=== PATIENT | female | born 2000 | race Caucasian/White ===

== ENCOUNTER 2019-06-06 09:57 | Inpatient (IN) | payer OTHER ==
[2019-06-06 11:30] LABS: Bacteria,Urine 1+ /HPF (Negative); Bilirubin,Urine NEG (Negative); Blood,Urine LG (Negative); Color,Urine Yellow (Yellow); Mucus,Urine FEW /HPF; Urobilinogen,Urine < 2.0 mg/dL (<2.0)
[2019-06-06 11:40] LABS: Amphetamine Screen,Urine PRESUMPTIVE NEGATIVE; Benzodiazepines Screen,Urine PRESUMPTIVE NEGATIVE; Cannabinoid Screen,Urine PRESUMPTIVE NEGATIVE; Cocaine Screen,Urine PRESUMPTIVE NEGATIVE; Methadone Screen,Urine PRESUMPTIVE NEGATIVE; Opiate Screen,Urine PRESUMPTIVE NEGATIVE
[2019-06-06] MEDS ORDERED: LACTATED RINGERS 1,000 ML ONE (13:27)
[2019-06-06] MEDS ORDERED: SUBLIMAZE IV PRN (14:10)
[2019-06-06] MEDS ORDERED: AMPICILLIN/NS 2 GM/100 ML 2 GM/100 ML BAG IV ONE (14:10)
[2019-06-06] MEDS ORDERED: XYLOCAINE 2% INFILTRATI ONE (14:10)
[2019-06-06] MEDS ORDERED: PHENERGAN PO PRN ×2 (14:10→17:41)
[2019-06-06] MEDS ORDERED: STADOL IV PRN (14:10)
[2019-06-06] MEDS ORDERED: BRETHINE IVP PRN (14:10)
[2019-06-06] MEDS ORDERED: MINERAL OIL PO PRN (14:10)
[2019-06-06] MEDS ORDERED: ZOFRAN IV PRN ×2 (14:10→17:41)
[2019-06-06] MEDS ORDERED: BRETHINE SUB-Q PRN (14:10)
--- NOTE | 2019-06-06 14:20 | History and Physical Report ---
History of Present Illness Date of examination: 06/06/19 Date of admission: 06/06/19 13:55 Chief complaint: Labor History of present illness: Pt is a 18yo HF EDC 06/06/19; EGA 40 0/7 weeks presents to L&D complaining of RUC's q 3-4 mins. She received care at [facility] since 1st Trimester, and course has been unremarkable. records are available and GBS is Negative. Past History Past Medical History: no pertinent history Past Surgical History: no surgical history Social history: no significant social history, single - Obstetrical History Expected Date of Delivery: 06/06/19 Actual Gestation: 40 Week(s) 0 Day(s) : 1 Medications and Allergies Allergies Allergy/AdvReac Type Severity Reaction Status Date / Time No Known Allergies Allergy Verified 06/06/19 10:38 Active Meds: Active Medications Butorphanol Tartrate (Stadol) 2 mg IV Q2H PRN PRN Reason: Pain , Severe (7-10) Ephedrine Sulfate (Ephedrine Sulfate) 10 mg IV Q2M PRN PRN Reason: Hypotension Fentanyl (Sublimaze) 100 mcg IV Q2H PRN PRN Reason: Labor Pain Oxytocin/Sodium Chloride (Pitocin/Ns 20 Unit/1000ml Drip) 20 units in 1,000 mls @ 125 mls/hr IV DIRECT DEON Oxytocin/Sodium Chloride (Pitocin/Ns 30 Unit/500ml) 30 units in 500 mls @ 1 mls/hr IV TITR DEON; Protocol Oxytocin/Sodium Chloride (Pitocin/Ns 30 Unit/500ml) 30 units in 500 mls @ 4 mls/hr IV TITR DEON; Protocol Lactated Ringer's (Lactated Ringers) 1,000 mls @ 125 mls/hr IV DIRECT DEON Ampicillin Sodium (Ampicillin/Ns 1 Gm/50 Ml) 1 gm in 50 mls @ 100 mls/hr IV Q4HR DEON; Protocol Ampicillin Sodium (Ampicillin/Ns 2 Gm/100 Ml) 2 gm in 100 mls @ 100 mls/hr IV ONCE ONE; Protocol Stop: 06/06/19 15:09 Lidocaine (Xylocaine 2%) 20 ml INFILTRATI ONCE ONE Stop: 06/06/19 14:11 Mineral Oil (Mineral Oil) 30 ml PO QHS PRN PRN Reason: Constipation Ondansetron HCl (Zofran) 4 mg IV Q8H PRN PRN Reason: Nausea And Vomiting Promethazine HCl (Phenergan) 25 mg PO Q6H PRN PRN Reason: Nausea And Vomiting Terbutaline Sulfate (Brethine) 0.25 mg SUB-Q ONCE PRN PRN Reason: Hyperstimulation/Hypertonicity Terbutaline Sulfate (Brethine) 0.25 mg IVP ONCE PRN PRN Reason: Hyperstimulation/Hypertonicity Review of Systems All systems: negative - Vital Signs Vital signs: Vital Signs Temp Pulse Resp BP 98.0 F 85 20 138/89 06/06/19 10:27 06/06/19 10:27 06/06/19 10:27 06/06/19 10:27 Temp Pulse Resp BP Pulse Ox 97.8 F 86 22 137/91 06/06/19 13:33 06/06/19 13:33 06/06/19 13:33 06/06/19 13:33 - Physical Exam Breasts: Positive: deferred Cardiovascular: Regular rate Lungs: Positive: Clear to auscultation Abdomen: Positive: normal appearance Genitourinary (Female): Positive: normal external genitalia Vagina: Positive: normal moisture Uterus: Positive: enlarged Extremities: Positive: normal - Obstetrical FHR: category 1 Uterine Contraction Monitor Mode: External Cervical Dilatation: 5 (per nurse) Cervical Effacement Percentage: 60 (per nurse) station: -2 Uterine Contraction Pattern: Regular Uterine Tone Measurement Phase: Contraction Uterine Contraction Intensity: Strong/Firm Results Result Diagrams: 06/06/19 14:51 Abnormal lab results 06/06/19 Range/Units 11:00 Urine WBC (Auto) 60.0 H (0.0-6.0) /HPF U Epithel Cells (Auto) 36.0 H (0-13.0) /HPF All other labs normal. Assessment and Plan - Patient Problems (1) 40 weeks gestation of Onset Date: 06/06/19 Current Visit: Yes Status: Acute Plan to address problem: A: IUP @ 40 0/7 weeks in labor GBS Negative P: Admit to L&D for expectant vaginal delivery
[2019-06-06] MEDS ORDERED: LACTATED RINGERS 1,000 ML IV SCH (15:00)
[2019-06-06] MEDS ORDERED: PITOCin/NS 30 UNIT/500ML 30 UNITS/500 ML BAG IV SCH ×2 (15:00)
[2019-06-06 15:11] LABS: Basophils % (Auto) 0.1 % (0.0-1.8); Eosinophils % (Auto) 0.1 % (0.0-4.3); Hematocrit 40.9 % (30.3-42.9); Lymphocytes # (Auto) 1.4 K/mm3 (1.2-5.4); Lymphocytes % (Auto) 9.2 % (13.4-35.0); Mean Corpuscular HGB Conc 34 % (30-34); Mean Corpuscular Volume 94 fl (79-97); Monocytes # (Auto) 0.8 K/mm3 (0.0-0.8); Platelet Count 208 K/mm3 (140-440); Red Blood Count 4.35 M/mm3 (3.65-5.03); Red Cell Distribution Width 13.8 % (13.2-15.2)
[2019-06-06] MEDS: PITOCin/NS 20 UNIT/1000ML DRIP 20 UNITS/1,000 ML BAG IV SCH ×2 (15:32→16:28)
[2019-06-06] MEDS ORDERED: METHERGINE IM ONE ×2 (15:34)
[2019-06-06] MEDS ORDERED: TYLENOL PO PRN (17:41)
[2019-06-06] MEDS ORDERED: PHENERGAN PR PRN (17:41)
[2019-06-06] MEDS ORDERED: DERMOPLAST TP PRN (17:41)
[2019-06-06] MEDS ORDERED: MILK OF MAGNESIA PO PRN (17:41)
[2019-06-06] MEDS ORDERED: LANSINOH TP PRN (17:41)
[2019-06-06] MEDS ORDERED: TUCKS PAD TP PRN (17:41)
[2019-06-06] MEDS ORDERED: NORCO 5/325 PO PRN (17:41)
[2019-06-06] MEDS ORDERED: BENADRYL PO PRN (17:41)
[2019-06-06] MEDS ORDERED: DULCOLAX PR PRN (17:41)
--- NOTE | 2019-06-06 17:50 | Procedure Note ---
OB Delivery Note - Delivery Date of Delivery: 06/06/19 Surgeon: RIVER INIGUEZ Estimated blood loss: 300cc - Vaginal Delivery presentation: vertex Delivery position: OA Intrapartum events: none Delivery induction: none Delivery augmentation: rupture of membranes Delivery monitor: external FHT, external uterine Route of delivery: Delivery placenta: spontaneous Delivery cord: 3 umbilical vessels Episiotomy: none Delivery laceration: 2nd degree, vaginal side wall Delivery repair: vicryl Anesthesia: none Delivery comments: Infant delivered OA and placed on Mom's chest for [id number] bonding and delayed cord clamping, cut by Dad - A at 1 minute: 8 at 5 minutes: 9 Gender: Female ([id number])
[2019-06-06] MEDS ORDERED: SODIUM CHLORIDE FLUSH SYRINGE 10 ML IV SCH (18:00)
[2019-06-06] MEDS ORDERED: PITOCin/NS 20 UNIT/1000ML DRIP 20 UNITS/1,000 ML BAG IV SCH (18:00)
[2019-06-06] MEDS ORDERED: AMPICILLIN/NS 1 GM/50 ML 1 GM/50 ML BAG IV SCH (18:13)
[2019-06-06] MEDS: IBUPROFEN PO SCH (21:43)
[2019-06-06] MEDS: FEOSOL PO SCH (21:43)
[2019-06-06] MEDS: COLACE PO SCH (21:45)
[2019-06-07] MEDS: IBUPROFEN PO SCH ×5 (05:30→21:54)
[2019-06-07 05:40] LABS: Hematocrit 34.1 % (30.3-42.9); Hemoglobin 11.8 gm/dl (10.1-14.3)
[2019-06-07] MEDS ORDERED: PRENATAL VITAMIN PO SCH (10:00)
--- NOTE | 2019-06-07 10:10 | Progress Note ---
Assessment and Plan - Patient Problems (1) 40 weeks gestation of Onset Date: 06/06/19 Current Visit: Yes Status: Resolved (2) (normal spontaneous vaginal delivery) Onset Date: 06/07/19 Current Visit: Yes Status: Resolved Plan to address problem: A: S/P - PPD #1 Doing well Asymptomatic anemia - stable P: May go home tomorrow. Subjective - Subjective Date of service: 06/07/19 Principal diagnosis: s/p - PPD #1 Interval history: Pt is feeling well without complaints. Bleeding improved. Patient reports: appetite normal, voiding normally, pain well controlled, flatus, ambulating normally, no dizzy ambulation, no nauseated Reynolds: doing well, bottle feeding Objective - Vital Signs Latest vital signs: Vital Signs Temp Pulse Resp BP BP Pulse Ox 06/07/19 08:32 98 F 80 20 109/70 06/06/19 23:26 98.2 F 91 H 20 104/54 98 06/06/19 17:51 98.7 F 18 134/77 06/06/19 17:09 93 H 124/72 06/06/19 16:39 98 H 129/74 06/06/19 16:24 97 H 136/74 06/06/19 16:09 104 H 134/70 06/06/19 15:54 98.0 F 104 H 128/71 06/06/19 14:34 82 138/71 06/06/19 13:33 97.8 F 86 22 137/91 06/06/19 12:32 95 H 123/77 06/06/19 10:27 98.0 F 85 20 138/89 Intake and Output 06/06/19 06/07/19 06/07/19 22:59 06:59 14:59 Intake Total 596.667 120 Output Total 800 800 Balance -203.333 -800 120 Intake: IV 116.667 PITOCin/NS 20 UNIT/1000ML 116.667 DRIP 20 units In 1,000 ml @ 125 mls/hr IV DIRECT DEON Rx#:[id number] Oral 480 120 Output: Urine 800 800 Void 800 800 Other: Total, Intake Amount 240 120 Total, Output Amount 800 800 # Voids Self-Catheterization 1 Void 1 2 Estimated Blood Loss 300 - Exam Breasts: Present: deferred Abdomen: Present: normal appearance, soft Uterus: Present: normal, firm, fundal height below umbilicus Extremities: Present: normal - Labs Labs: Abnormal lab results 06/06/19 06/06/19 Range/Units 11:00 14:51 WBC 15.4 H (4.5-11.0) K/mm3 Lymph % (Auto) 9.2 L (13.4-35.0) % Seg Neutrophils % 85.6 H (40.0-70.0) % Seg Neutrophils # 13.2 H (1.8-7.7) K/mm3 Urine WBC (Auto) 60.0 H (0.0-6.0) /HPF U Epithel Cells (Auto) 36.0 H (0-13.0) /HPF Laboratory Tests 06/06/19 06/06/19 06/06/19 11:00 11:00 14:51 WBC RBC Hgb Hct MCV MCH MCHC RDW Plt Count Lymph % (Auto) Jennings % (Auto) Eos % (Auto) Baso % (Auto) Lymph # Jennings # Eos # Baso # Seg Neutrophils % Seg Neutrophils # Urine Color Yellow Urine Turbidity Cloudy Urine pH 6.0 Ur Specific [place] 1.018 Urine Protein 30 mg/dl Urine Glucose (UA) 150 Urine Ketones Neg Urine Blood Lg Urine Nitrite Neg Urine Bilirubin Neg Urine Urobilinogen < 2.0 Ur Leukocyte Esterase Mod Urine WBC (Auto) 60.0 H Urine RBC (Auto) 2.0 U Epithel Cells (Auto) 36.0 H Urine Bacteria (Auto) 1+ Urine Mucus Few Urine Opiates Screen Presumptive negative Urine Methadone Screen Presumptive negative Ur Barbiturates Screen Presumptive negative Ur Phencyclidine Scrn Presumptive negative Ur Amphetamines Screen Presumptive negative U Benzodiazepines Scrn Presumptive negative Urine Cocaine Screen Presumptive negative U Marijuana (THC) Screen Presumptive negative Drugs of Abuse Note Disclamer Hep Bs Antigen HIV 1&2 Antibody Rapid HIV P24 Antigen Rubella IgG Antibody Blood Type O POSITIVE Antibody Screen Negative 06/06/19 06/06/19 06/06/19 14:51 14:51 14:51 WBC 15.4 H RBC 4.35 Hgb 14.0 Hct 40.9 MCV 94 MCH 32 MCHC 34 RDW 13.8 Plt Count 208 Lymph % (Auto) 9.2 L [place] % (Auto) 5.0 Eos % (Auto) 0.1 Baso % (Auto) 0.1 Lymph # 1.4 Jennings # 0.8 Eos # 0.0 Baso # 0.0 Seg Neutrophils % 85.6 H Seg Neutrophils # 13.2 H Urine Color Urine Turbidity Urine pH Ur Specific [place] Urine Protein Urine Glucose (UA) Urine Ketones Urine Blood Urine Nitrite Urine Bilirubin Urine Urobilinogen Ur Leukocyte Esterase Urine WBC (Auto) Urine RBC (Auto) U Epithel Cells (Auto) Urine Bacteria (Auto) Urine Mucus Urine Opiates Screen Urine Methadone Screen Ur Barbiturates Screen Ur Phencyclidine Scrn Ur Amphetamines Screen U Benzodiazepines Scrn Urine Cocaine Screen U Marijuana (THC) Screen Drugs of Abuse Note Hep Bs Antigen Non-reactive HIV 1&2 Antibody Rapid Non react HIV P24 Antigen Non react Rubella IgG Antibody Immune Blood Type Antibody Screen 06/07/19 05:32 WBC RBC Hgb 11.8 Hct 34.1 D MCV MCH MCHC RDW Plt Count Lymph % (Auto) Jennings % (Auto) Eos % (Auto) Baso % (Auto) Lymph # Jennings # Eos # Baso # Seg Neutrophils % Seg Neutrophils # Urine Color Urine Turbidity Urine pH Ur Specific [place] Urine Protein Urine Glucose (UA) Urine Ketones Urine Blood Urine Nitrite Urine Bilirubin Urine Urobilinogen Ur Leukocyte Esterase Urine WBC (Auto) Urine RBC (Auto) U Epithel Cells (Auto) Urine Bacteria (Auto) Urine Mucus Urine Opiates Screen Urine Methadone Screen Ur Barbiturates Screen Ur Phencyclidine Scrn Ur Amphetamines Screen U Benzodiazepines Scrn Urine Cocaine Screen U Marijuana (THC) Screen Drugs of Abuse Note Hep Bs Antigen HIV 1&2 Antibody Rapid HIV P24 Antigen Rubella IgG Antibody Blood Type Antibody Screen
--- NOTE | 2019-06-07 10:23 | Discharge Summary ---
Providers - Providers Date of Admission: 06/06/19 13:55 Date of discharge: 06/08/19 Attending physician: RIVER INIGUEZ Primary care physician: SAFETY AIDE Hospitalization Reason for admission: active labor, IUP at term Delivery: Episiotomy: none Laceration: vaginal side wall, 2nd degree Other procedures: none complications: none Discharge diagnosis: IUP at term delivered [place] baby: female Hospital course: Unremarkable. Condition at discharge: Good Disposition: DC-01 TO HOME OR SELFCARE - Discharge Diagnoses (1) 40 weeks gestation of Status: Resolved (2) (normal spontaneous vaginal delivery) Status: Resolved Plan - Discharge Medications Prescriptions: Ferrous Sulfate [Feosol 325 MG tab] 325 mg PO BID #60 tablet Ibuprofen [Motrin 600 MG tab] 600 mg PO Q6HR #30 tablet Vit-Fe Fumar-FA [ Vitamin] 1 each PO QDAY #30 tablet - Provider Discharge Summary Activity: routine, no sex for 6 weeks, no heavy lifting 4 weeks, no strenuous exercise Diet: routine Instructions: routine Additional instructions: [] Smoking cessation referral if applicable(refer to patient education folder for contact #) [] Refer to [facility]'s [facility] Booklet Call your doctor immediately for: * Fever > 100.5 * Heavy vaginal bleeding ( >1 pad per hour) * Severe persistent headache * Shortness of breath * Reddened, hot, painful area to leg or breast * Drainage or odor from incision. * Keep incision clean and dry at all times and follow doctor's instructions regarding bathing/showering - Follow up plan Follow up: JANNA MILLER MD [Primary Care Provider] - 6 Weeks RIVER INIGUEZ MD [Staff Physician] - 6 Weeks
[2019-06-07] MEDS ORDERED: BOOSTRIX IM ONE (12:00)
[2019-06-07] MEDS: COLACE PO SCH ×2 (12:01→21:54)
[2019-06-07] MEDS: FEOSOL PO SCH ×2 (12:01→21:54)
[2019-06-07] MEDS ORDERED: M-M-R II VACCINE SUB-Q ONE (17:41)
[2019-06-08] MEDS: IBUPROFEN PO SCH ×2 (00:10→05:17)
[2019-06-08 09:07] VITALS: BP 125/68
== END 2019-06-08 09:50 | disposition home or self-care (01) | DRG 775 ==
LOC: TRG 09:57 → LD 13:55 → OB 18:11
PROVIDERS: ADMIT Obstetrics & Gynecology; ATTEND Obstetrics & Gynecology
PROC: 10E0XZZ Delivery of Products of Conception, External Approach (ICD-10-PCS; principal; 2019-06-06)
PROC: 0KQM0ZZ Repair Perineum Muscle, Open Approach (ICD-10-PCS; 2019-06-07)
DX: O70.1 Second degree perineal laceration during delivery (principal); Z37.0 Single live birth; Z3A.40 40 weeks gestation of pregnancy; O99.02 Anemia complicating childbirth; D64.9 Anemia, unspecified
CPT/HCPCS: 36415; 80307; 81001; 85014; 85018; 85025; 86592; 86706; 86762; 86850; 86900; 86901; 87086; 87806; G0378; J0290; J0595; J2210; J2590; J7120